=== PATIENT | male | born 1950 | race Two or more races ===

== ENCOUNTER 2024-03-26 11:46 | Emergency (ER) | payer MEDICARE, MEDICAID ==
[2024-03-26] MEDS ORDERED: ATOR-507 PO (16:34)
[2024-03-26] MEDS ORDERED: CARV3.1240 PO (16:34)
[2024-03-26] MEDS ORDERED: HYDR-4798 PO (16:34)
[2024-03-26] MEDS ORDERED: TOPI50TA53 PO (16:36)
[2024-03-26] MEDS ORDERED: TRAZ-228 PO (16:36)
[2024-03-26] MEDS ORDERED: TRAZ-181 PO (16:37)
[2024-03-27] MEDS ORDERED: LACTCAP20 OR (01:20)
[2024-03-27] MEDS ORDERED: MOMLQ GT (01:20)
[2024-03-27] MEDS ORDERED: BISA10SU5 RE (01:20)
[2024-03-27] MEDS ORDERED: DOCU-94 PO (01:20)
[2024-03-27] MEDS ORDERED: ASCO500T11 PO (01:20)
[2024-03-27] MEDS ORDERED: CRAN450T PO (01:20)
[2024-03-27] MEDS ORDERED: ZINC220C8 PO (01:21)
[2024-03-27] MEDS ORDERED: VITA400T4 PO (01:21)
== END 2024-03-26 11:47 | disposition left against medical advice (07) ==
LOC: EDBD 11:46 → ER 11:46 → EDUNIT# 11:46 → ER 11:47
DX: Z49.01 Encounter for fitting and adjustment of extracorporeal dialysis catheter (principal); Z53.21 Procedure and treatment not carried out due to patient leaving prior to being seen by health care provider

== ENCOUNTER 2024-03-26 11:57 | Inpatient (IN) | payer MEDICARE, MEDICAID ==
[~2024-03-26] VITALS: Ht 182.9 cm; Wt 107.1 kg
[2024-03-26 12:30] VITALS: PULSE 84; RESP 18; O2SAT 97
[2024-03-26 13:08] LABS: Basophils # (auto) 0.1 10 ^3/uL (0-0.2); Basophils % (auto) 0.6 % (0.0-2.0); Eosinophils # (auto) 0.5 10 ^3/uL (0-0.8); Eosinophils % (auto) 4.7 % (0.0-7.0); Hematocrit 23.6 % (41.0-53.0); Hemoglobin 7.7 g/dL (13.5-17.5); Lymphocytes # (auto) 1.3 10 ^3/uL (0.4-5.4); Lymphocytes % (auto) 11.9 % (10.0-50.0); Mean Corpuscular Hemoglobin 29.4 pg (28.0-32.0); Mean Corpuscular Hgb Conc. 32.7 g/dL (32.0-36.0); Mean Corpuscular Volume 89.8 fL (80.0-100.0); Monocytes # (auto) 1.3 10 ^3/uL (0-1.3); Monocytes % (auto) 11.9 % (0.0-12.0); Neutrophils # (auto) 7.5 10 ^3/uL (1.6-8.6); Neutrophils % (auto) 70.9 % (37.0-80.0); Red Blood Cells 2.63 10^6/uL (4.5-5.90); Red Cell Distribution Width 14.1 % (11.8-14.3); White Blood Cell 10.6 10^3/uL (4.4-10.8)
[2024-03-26 13:25] LABS: Anion Gap 7 (5-15); Calcium 8.9 mg/dL (8.7-10.4); Carbon Dioxide 30 mmol/L (20-30); Chloride 97 mmol/L (98-107); Potassium 4.1 mmol/L (3.5-5.1); Sodium 134 mmol/L (136-145)
[2024-03-26 13:26] LABS: INR 1.27 (0.9-1.15); Prothrombin Time 13.2 sec (9.3-11.8)
[2024-03-26 13:31] LABS: BUN/Creatinine Ratio 5.1 (10.0-20.0); Blood Urea Nitrogen 21 mg/dL (9-23); Glucose 99 mg/dL (74-106)
[2024-03-26] MEDS ORDERED: DOCUSATE SOD 100 MG CAP PO PRN (15:30)
[2024-03-26] MEDS ORDERED: ONDANSETRON HCL 4 MG/2 ML VIAL IV PRN (15:30)
[2024-03-26] MEDS ORDERED: NITROGLYCERIN 0.4 MG SL TAB SL PRN (15:30)
[2024-03-26] MEDS ORDERED: DEXTROSE (50%) 50ML SYRG IV PRN (15:30)
[2024-03-26] MEDS ORDERED: ATOR-507 PO (16:34)
[2024-03-26] MEDS ORDERED: CARV3.1240 PO (16:34)
[2024-03-26] MEDS ORDERED: HYDR-4798 PO (16:34)
[2024-03-26] MEDS ORDERED: TOPI50TA53 PO (16:36)
[2024-03-26] MEDS ORDERED: TRAZ-228 PO (16:36)
[2024-03-26] MEDS ORDERED: TRAZ-181 PO (16:37)
[2024-03-26] MEDS: ENOXAPARIN SOD 30 MG/0.3 ML SYRINGE SC SCH (18:43)
[2024-03-26] MEDS: ACCU-CHEK COMFORT CURVE STRIP VI SCH (19:17)
[2024-03-26] MEDS: InsuLIN REG 1unit/0.01ml Soln (100units/ml) SC SCH (19:17)
[2024-03-26 19:30] VITALS: PULSE 80; RESP 16; O2SAT 95
[2024-03-26] MEDS ORDERED: BENAZEPRIL HCL 10 MG TAB PO ONE (22:00)
[2024-03-26] MEDS: TOPIRAMATE 25 MG TAB PO SCH (22:15)
[2024-03-26] MEDS: diphenhdrAMINE HCL 25 MG CAP PO ONE (22:15)
[2024-03-26] MEDS: traZODone HCL 50 MG TAB PO SCH (22:15)
[2024-03-26 23:10] VITALS: BP 120/50; PULSE 91; RESP 19; TEMP 98.8; O2SAT 93
[2024-03-26 23:30] VITALS: PULSE 91; RESP 19; O2SAT 93
[2024-03-27] VITALS (11 sets, daily range): BP systolic 99–145; BP diastolic 50–68; PULSE 82–94; RESP 16–20; TEMP 97.9–99.2; O2SAT 93–99
[2024-03-27] MEDS ORDERED: LACTCAP20 OR (01:20)
[2024-03-27] MEDS ORDERED: MOMLQ GT (01:20)
[2024-03-27] MEDS ORDERED: ASCO500T11 PO (01:20)
[2024-03-27] MEDS ORDERED: CRAN450T PO (01:20)
[2024-03-27] MEDS ORDERED: DOCU-94 PO (01:20)
[2024-03-27] MEDS ORDERED: BISA10SU5 RE (01:20)
[2024-03-27] MEDS ORDERED: VITA400T4 PO (01:21)
[2024-03-27] MEDS ORDERED: ZINC220C8 PO (01:21)
[2024-03-27] MEDS: CARVEDILOL 3.125 MG TAB PO SCH (05:08)
[2024-03-27 05:49] LABS: Basophils # (auto) 0.1 10 ^3/uL (0-0.2); Basophils % (auto) 0.9 % (0.0-2.0); Eosinophils # (auto) 0.5 10 ^3/uL (0-0.8); Eosinophils % (auto) 5.2 % (0.0-7.0); Hematocrit 21.7 % (41.0-53.0); Hemoglobin 7.2 g/dL (13.5-17.5); Lymphocytes # (auto) 1.5 10 ^3/uL (0.4-5.4); Lymphocytes % (auto) 15.2 % (10.0-50.0); Mean Corpuscular Hemoglobin 29.4 pg (28.0-32.0); Monocytes # (auto) 1.3 10 ^3/uL (0-1.3); Monocytes % (auto) 12.8 % (0.0-12.0); Neutrophils # (auto) 6.5 10 ^3/uL (1.6-8.6); Neutrophils % (auto) 65.9 % (37.0-80.0); Red Blood Cells 2.43 10^6/uL (4.5-5.90); Red Cell Distribution Width 14.5 % (11.8-14.3); White Blood Cell 9.9 10^3/uL (4.4-10.8)
[2024-03-27 05:52] LABS: Alkaline Phosphatase 78 U/L (46-116); Anion Gap 8 (5-15); Aspartate Aminotransferase 36 U/L (13-40); BUN/Creatinine Ratio 4.9 (10.0-20.0); Bilirubin, Total 0.3 mg/dL (0.2-1.0); Blood Urea Nitrogen 24 mg/dL (9-23); Calcium 8.6 mg/dL (8.7-10.4); Carbon Dioxide 28 mmol/L (20-30); Chloride 99 mmol/L (98-107); Glucose 87 mg/dL (74-106); Sodium 135 mmol/L (136-145)
[2024-03-27 05:53] LABS: Total Protein 6.8 g/dL (5.7-8.2)
[2024-03-27 06:10] LABS: Alanine Aminotransferase 22 U/L (7-40)
[2024-03-27] MEDS: ATORVASTATIN 20 MG TAB PO SCH (10:00)
[2024-03-27 11:55] LABS: Magnesium 1.4 mg/dL (1.6-2.6)
[2024-03-27] MEDS ORDERED: SODIUM CHL 0.9% 1000 ML BAG XX ONE (14:30)
[2024-03-27] MEDS: LIDOCAINE 2%HCL (LOCAL ANESTH.) INJ 20ML MDV ONE (15:30)
[2024-03-27] MEDS: fentaNYL CITRATE 100 MCG/2 ML VL ONE (15:33)
[2024-03-27] MEDS: MIDAZOLAM HCL 2MG/2ML 2ml VIAL (1mg/ml) ONE (15:33)
[2024-03-27] MEDS: HEPARIN SODIUM (PORCINE) 5000 UNITS/ML 1ML VIAL ONE (15:34)
[2024-03-27] MEDS: ceFAZolin 1GM/50ML 50 ML IV ONE (15:35)
[2024-03-27] MEDS: HYDROcodone-ACET 10/325MG TAB PO PRN (21:58)
[2024-03-28] VITALS (7 sets, daily range): BP systolic 119–153; BP diastolic 65–85; PULSE 70–86; RESP 15–19; TEMP 36.2; O2SAT 94–100
[2024-03-28 06:22] LABS: Basophils # (auto) 0.1 10 ^3/uL (0-0.2); Eosinophils # (auto) 0.5 10 ^3/uL (0-0.8); Mean Corpuscular Volume 91.3 fL (80.0-100.0); Monocytes # (auto) 1.5 10 ^3/uL (0-1.3); Red Cell Distribution Width 14.4 % (11.8-14.3)
[2024-03-28 06:25] LABS: Basophils % (auto) 0.9 % (0.0-2.0); Eosinophils % (auto) 3.9 % (0.0-7.0); Hematocrit 23.6 % (41.0-53.0); Hemoglobin 7.6 g/dL (13.5-17.5); Lymphocytes # (auto) 1.4 10 ^3/uL (0.4-5.4); Lymphocytes % (auto) 11.7 % (10.0-50.0); Mean Corpuscular Hemoglobin 29.3 pg (28.0-32.0); Mean Corpuscular Hgb Conc. 32.1 g/dL (32.0-36.0); Monocytes % (auto) 12.9 % (0.0-12.0); Neutrophils # (auto) 8.2 10 ^3/uL (1.6-8.6); Neutrophils % (auto) 70.6 % (37.0-80.0); Red Blood Cells 2.59 10^6/uL (4.5-5.90); White Blood Cell 11.6 10^3/uL (4.4-10.8)
[2024-03-28 06:36] LABS: Alanine Aminotransferase 20 U/L (7-40); Alkaline Phosphatase 84 U/L (46-116); Anion Gap 8 (5-15); Aspartate Aminotransferase 35 U/L (13-40); BUN/Creatinine Ratio 4.7 (10.0-20.0); Blood Urea Nitrogen 27 mg/dL (9-23); Calcium 8.6 mg/dL (8.7-10.4); Carbon Dioxide 26 mmol/L (20-30); Chloride 101 mmol/L (98-107); Glucose 99 mg/dL (74-106); Potassium 4.1 mmol/L (3.5-5.1); Sodium 135 mmol/L (136-145)
[2024-03-28 06:37] LABS: Bilirubin, Total 0.3 mg/dL (0.2-1.0); Total Protein 7.4 g/dL (5.7-8.2)
== END 2024-03-28 20:25 | disposition home health service (06) | DRG 673 ==
LOC: EDBD 11:57 → ER 11:57 → OVERFLOW 15:30 → WEST WING 23:10
PROVIDERS: ADMIT Internal Medicine; ATTEND Emergency Medicine
PROC: 0JH63XZ Insertion of Tunneled Vascular Access Device into Chest Subcutaneous Tissue and Fascia, Percutaneous Approach (ICD-10-PCS; principal; 2024-03-27)
PROC: 02HV33Z Insertion of Infusion Device into Superior Vena Cava, Percutaneous Approach (ICD-10-PCS; 2024-03-27)
PROC: B518ZZA Fluoroscopy of Superior Vena Cava, Guidance (ICD-10-PCS; 2024-03-27)
PROC: B548ZZA Ultrasonography of Superior Vena Cava, Guidance (ICD-10-PCS; 2024-03-27)
PROC: 5A1D70Z Performance of Urinary Filtration, Intermittent, Less than 6 Hours Per Day (ICD-10-PCS; 2024-03-28)
DX: T82.42XA Displacement of vascular dialysis catheter, initial encounter (principal); G93.41 Metabolic encephalopathy; N18.6 End stage renal disease; I13.2 Hypertensive heart and chronic kidney disease with heart failure and with stage 5 chronic kidney disease, or end stage renal disease; E87.1 Hypo-osmolality and hyponatremia; F32.A Depression, unspecified; F10.10 Alcohol abuse, uncomplicated; Y90.9 Presence of alcohol in blood, level not specified; E78.5 Hyperlipidemia, unspecified; E11.65 Type 2 diabetes mellitus with hyperglycemia; Y83.8 Other surgical procedures as the cause of abnormal reaction of the patient, or of later complication, without mention of misadventure at the time of the procedure; R56.9 Unspecified convulsions; F03.90 Unspecified dementia, unspecified severity, without behavioral disturbance, psychotic disturbance, mood disturbance, and anxiety; I25.10 Atherosclerotic heart disease of native coronary artery without angina pectoris; D63.1 Anemia in chronic kidney disease; I50.9 Heart failure, unspecified; E11.22 Type 2 diabetes mellitus with diabetic chronic kidney disease; H54.61 Unqualified visual loss, right eye, normal vision left eye; I25.2 Old myocardial infarction; Z99.2 Dependence on renal dialysis; Z74.01 Bed confinement status; Y92.89 Other specified places as the place of occurrence of the external cause; Z91.158 Patient's noncompliance with renal dialysis for other reason
CPT/HCPCS: 36415; 36558; 71045; 77001; 80048; 80053; 82962; 83036; 83735; 83880; 84100; 84484; 85025; 85610; 85730; 86141; 86850; 86900; 86901; 86920; 87040; 87081; 87340; 90935; 93005; 99152; C1894; G0378; J1642; J2250